=== PATIENT | female | born 1995 | race Caucasian/White ===

== ENCOUNTER 2016-07-05 11:54 | Emergency (ER) | payer BC ==
[~2016-07-05] VITALS: Wt 71.0 kg
[2016-07-05] MEDS ORDERED: ONDANSETRON (ODT) 4 MG TAB ODT STA (13:15)
[2016-07-05] MEDS ORDERED: HYDROCODONE/APAP (5/325) TAB PO ONE (13:30)
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
[2016-07-05] MEDS ORDERED: KETOROLAC 30 MG INJ IM STA (14:21)
[2016-07-05] MEDS ORDERED: NAPR-260 PO (15:06)
[2016-07-05] MEDS ORDERED: HYDR-906 PO (15:06)
[2016-07-05 15:46] VITALS: BP 132/71; PULSE 79; RESP 18; TEMP 98
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
== END 2016-07-05 15:47 | disposition home or self-care (01) ==
LOC: FTE 11:54
DX: S62.316A Displaced fracture of base of fifth metacarpal bone, right hand, initial encounter for closed fracture (principal); V49.40XA Driver injured in collision with unspecified motor vehicles in traffic accident, initial encounter
CPT/HCPCS: 29125; 73030; 73110; 73130; 96372; J1885; Z7502; Z7610